=== PATIENT | female | born 1945 | race Caucasian/White ===

== ENCOUNTER 2025-08-17 07:30 | Outpatient (OUT) | payer MEDICARE, OTHER, SELFPAY ==
--- OUTSIDE RECORDS SUMMARY | 2011-07-22 05:30 | XMS_ITS | Continuity of Care Document ---
Author Organization [facility] Address [address] [place] [address] Phone Care Team Providers Care Envelope Stuffer Name Role Phone Brodie IGLESIAS, Matthias Unavailable Unavailable Procedures Procedure Date ZOSTER VACC, SC OFFICE/OUTPATIENT VISIT, EST OFFICE/OUTPATIENT VISIT, EST ZOSTER VACC, SC Advance Directives Directive Yes / No Effective Date File Name Resuscitation Not Answered N/A N/A Life Support Not Answered N/A N/A Intubation Not Answered N/A N/A Antibiotics Not Answered N/A N/A IV Fluid Support Not Answered N/A N/A Tube Feed Not Answered N/A N/A Other Directive N/A N/A WARNING:The information contained in this section is historical and is provided for information only and does not constitute a legal document or any assurance that the information is still accurate. Please verify the information with the marin of the legal document before using it for clinical purposes. Encounters Encounter Description Practice Location Reason(s) For Visit Diagnoses Date Provider Providers Copied on Encounter OFFICE/OUTPAT IENT VISIT, [facility], [address], [place], [id number], tel:[phone] [facility] Need for prophylactic vaccination and inoculation, other viral diseases Brodie Dillard. [address], [place], [id number], [place]. tel:[phone] Family History Family Member Type Diagnosis Age At Onset No Information Immunizations Vaccine Date Status Comments Zoster administered Source: New Imm unization Record Payers Payer name Insurance type Covered green party ID Authoriza tion(s) No Information Social History Type Description Quantity Date Captured Comments Alcohol Use Details Unknown Caffeine Use Details Unknown Tobacco Use Status No Information Smoking Status No Information Sex Female Chief Complaint And Reason For Visit No Information Reason For Referral Reason For Referral No Information History Of Present Illness Encounter Date Complaint History Of Prese nt Illness No Information Functional Status Date Functional Assessmen t No Information Instructions Date Instruction Additional Infor mation No Information Assessments Type Assessment Date No Information Patient Care Teams Name Effective Dates (start - stop) Status Members No Information
--- OUTSIDE RECORDS SUMMARY | 2024-03-21 05:10 | XMS_ITS ---
Author Organization [facility] in [place] Address [address] [place] [address] Care Team Providers Care Health Care Manager Name Role Phone Eddy Aldridge DO Primary Care Provider Unavail able Patrick Shin [phone] REASON FOR VISIT Ref Luis Carlos- scheduled w/ Karyn - Recurrent UTIs w/ hematuria -- medicare Encounters Encounter Location Date Provider Diagnosis Urology [facility] [address] [address] 03/21/2024 Patrick Shin Plan Of Treatment No Information Progress Notes * Yadira CHARLESDOB:1944 (80 yo F)Acc No.[id number]:03/21/2024 UNLOCKED PROGRESS NOTE Progress Note Patient: Yadira CHAVEZ :?ELIAS BobbyOB:1945???Age:79 Y ???Sex:FemaleDate:4Phone:[phone]:[address], [facility]Crl:Eddy Aldridge DO Subjective: * Chief Complaints: * 1 . Ref Luis Carlos- scheduled w/ Karyn - Recurrent UTIs w/ hematuria -- medicare. * Medical History: Objective: * Vitals: Assessment: Plan: * Treatment: * * Electronic signature of Patrick Shin MD, [id number] on 08/17/2025 at 07:36 AM ESTSign off status: PendingVisit Status:?CANC (Cancelled) * Provider: Jose Manuel Shin MD Date: 0 03/21/2024 Generated for Printing/Faxing/eTransmitting on:?08/17/2025 07:36 AM EST
--- NOTE | 2025-08-17 | XR_ITS ---
The [address] [address] Patient Name: NGHIA SINCLAIR MRN: [id number] date: 1945 Sex: F Assigned Patient Location: [facility] Current Patient Location: [facility] Accession/Order Number: [id number] Exam Date: 08/17/2025 10:00 Report Date: 08/17/2025 11:07 At the request of: ADALGISA SSOA MD Procedure: XR knee LT 4V LEFT KNEE - 4 views COMPARISON: None CLINICAL DATA: Chronic worsening left knee pain. No reported injury. Weightbearing AP, lateral, tunnel and patellar views were obtained. There is osteopenia. No acute fracture or dislocation is identified. There is narrowing of the lateral tibiofemoral joint space with potential bone to bone contact on the tunnel view. There is no patellar subluxation. Mild marginal spurring is seen. There is a small amount of joint fluid. No soft tissue swelling is noted. XR/XR knee LT 4V IMPRESSION: OSTEOPENIA AND DEGENERATIVE CHANGES. Impression dictated by: Mona Hernandez M.D. 08/17/2025 11:07 AM Dictation Location: [place] [address] Electronically authenticated by: [id number] Y Date: 08/17/2025 11:07
--- OUTSIDE RECORDS SUMMARY | 2025-08-17 07:33 | XMS_ITS | Continuity of Care Document ---
Author Organization [facility] Address [address] [place] [address] Phone Care Team Providers Care Elementary Principal Name Role Phone Yadira Meza DO Attending Provider Mast, Haseeb DO Primary Care Provider Mast, Haseeb DO Attending Provider [phone] Care Teams Patient Care Team Team Status: Active Member Role/Relationship Status Dates Haseeb Arteaga DO Primary Care Provider Active Visit Care Team Team Status: Inactive Member Role/Relationship Status Dates Yadira Meza DO Attending Provider Active S tart: May 24, 2025 End: May 24, 2025Eric Mast DOPrimary Care ProviderActiveStart: May 24, 2025 End: May 24, 2025 Visit Care Team Team Status: Inactive Member Role/Relationship Status Dates Haseeb Mast , DO Primary Care Provider Active Star t: July 16, 2025 End: July 16, 2025Eric Mast , DOAttending ProviderActiveStart: July 16, 2025 End: July 16, 2025 Chief Complaint and Reason for Visit Chief Complaint Admit Date Z13.820 Z78.0 May 24, 2025 9: 38am discuss her asthma July 16, 2025 4 :26pm Reason for Visit Admit Date Asthma July 16, 2025 4 :26pm Seasonal allergies July 16, 2025 4 :26pm Allergies, Adverse Reactions, Alerts Allergen Type Severity Reaction Last Updated Verified Status aloe Allergy Unknown Itching, hives July 162024 3:42pm Yes Active sunflower seed Allergy Unknown throat closes , vomiting July 16, 2025 3:42pm Yes Active Social History Smoking Status Status Start Date End Date Date of Observa tion Ex-smoker (finding) April 27, 2025 8:12am Observation Status Observation Response Date of Response Legal Sex [facility] (finding) [facility] 1944 Family History Relationship Condition Age at Onset Recorded Date/T tahmina mother Malignant neoplasm of stomach Unknown DeceasedUnknownfatherMalignant neoplasm of prostateUnknownDeceasedUnknownbrother Malignant neoplasm of kidneyUnknownDeceasedUnknownsisterDeceasedUnknownMalignant neoplasm of kidneyUnknown Problems Active Problems Problem Diagnosis/Recorded Date Onset Date Status C omments Establishing care with new d rani, encounter for April 27, 2025 9:17am Unknown Active Fatty liverApril 2023 9:53amUnknownActiveGastritisOctober 2023 10:38am UnknownActiveSeasonal allergiesMay 2023 8:47amUnknownActive HypercholesteremiaJune 2019 9:06amUnknownActiveOsteoarthritisMay 2023 8:48amUnknownActiveleft kneeBlood in stoolApril 2023 10:08amUnknownActive GERD (gastroesophageal reflux disease)January 15, 2025 10:51amUnknownActive Abdominal painApril 2023 10:11amUnknownActiveHypertensionJune 2019 9:06amUnknownActiveUlcerative colitisJune 2019 9:07amUnknownActive ConstipationApril 2023 10:07amUnknownActiveAsthmaMay 2023 8:49am UnknownActivemild Medications Medication Status Dose Units Route Directions Qty Days Refills S tart Date Stop Date End Date Reason(s) Instructions Adherence Mesalamine 0.375 gram capsule,extended release 24hr Discontinued 1.5 GM PO Daily 360 90 3 b ruary 2023 12:00am November 25, 2023 11:56amTake 4 capsules orally once a dayMesalamine 0.375 gram capsule,extended release 30dtDxgmnvcagzze0.2CVPTGvcjo290918Bcmchkmj 2023 11:55amSeptember 2023 7:10amulcerative colitisTake 4 capsules orally once a dayPantoprazole 40 mg tablet,delayed release (DR/EC)Jihjxdhvypqi41LYVB Dugvi445Lulg 2023 11:00pmOctober 2023 10:16amMesalamine 0.375 gram capsule,extended release 45zqCepmkyoccrxj7.8JCNWEmhzb404299Rbnb 2023 11:00pmSeptember 2023 7:10amTake 4 capsules orally once a day.Mesalamine 0.375 gram capsule,extended release 41muLgfizosxdprh6.9LOLEFjddh868795Lkvfsfgtr 2023 7:09amJanuary 2024 11:55amulcerative colitisTake 4 capsules orally once a dayMesalamine 0.375 gram capsule,extended release 24hrDiscontinued 1.3ITOHQqkxj115815Waneskp 2024 11:54amAugust 2024 12:13pmulcerative colitisTake 4 capsules orally once a dayAtorvastatin 10 mg lsacznOzqclv87CGZU Daily at ccpaupp016Awre 2024 9:05amComplies with drug therapyIrbesartan 150 mg dumnklNdchmt483VEXRWxijv at wvwhqad771Uyof 2024 9:06amComplies with drug therapyMesalamine 0.375 gram capsule,extended release 65liJbomwcsvzlxa7.5GM ZQFbdbw807185Rqluao 2024 12:12pmOctober 2024 3:46pmulcerative colitisTake 4 capsules orally once a dayNirmatrelvir-Ritonavir (Paxlovid) 300 mg (150 mg x 2)-100 mg tablets,dose jlhuYkwazehtybdi1LM.JQBPMKK226Xqsycv 2024 11:00pmOctober 2024 3:46pmtake TWO 150 mg tablets of nirmatrelvir with ONE 100 mg tablet of ritonavir twice daily for 5 days POMultivitamin TabletActive1 TABPODailyJune 2019 11:00pmComplies with drug therapyAtorvastatin 10 mg tmhqxjTqyvftaqdwib8PKVMPSblhc at bedtimeJun2019 11:00pmJuly 2024 9:06amAscorbic Acid (Vitamin C) (Vitamin C) 500 mg HcvnfnWlicil154BMXRPvqiuWadl 2019 11:00pmComplies with drug therapyVitamin B Complex KzshivBowuxs4CGCPE DailyJun2019 11:00pmComplies with drug therapyEstradiol 0.01 % (0.1 mg/gram) yeilwMemtrp9TVPFBIAHARWQmyjf a WeekJun2019 11:00pmComplies with drug therapyLosartan 100 mg yelsbbHyvbhlrikxkr3DDRRFBhbkqNqer 2019 11:00pm January 07, 2024 9:57amLoratadine 10 mg EkmbcfEahtws71DDKJLzagdDqks 2019 11:00pmComplies with drug therapyCoenzyme Q10 (Co Q-10) 200 mg ZzjsjynXlcgwn936 MGPODailyJune 2019 11:00pmComplies with drug therapyCholecalciferol (Vitamin D3) (Vitamin D3) 50 mcg (2,000 unit) ItbupeJlxjss9253DIGEDTRhccxCugo 2019 11:00pmComplies with drug therapyMesalamine 0.375 gram capsule,extended release 13dcEizqgxdckhuz5GSIOOPddibRinw 2019 11:00pmApril 2023 9:58amLutein-Zeaxanthin 25-5 mg FizpimfUqomtp7JWNNUUoefeQfjk 2019 11:00pmComplies with drug therapyLactobacillus Combination No.4 (Probiotic) 3 billion cell BsaoengOzbrmyqavtel2089WGB CELLSPODailyJune 2019 11:00pmJuly 2024 9:58amTurmeric 400 mg ZjcticdEtkrrxfxueko4XOMDSBiavaCkoy 2019 11:00pmApril 2024 10:01amLactobacillus Combination No.4 (Probiotic) 3 billion cell lcmnoilRlhiop2930SBS CELLSPODailyJuly 2024 9:57amComplies with drug therapyLysine 500 mg srdkskIwlvolpeakkb252DHDMCzctlNiz 2023 11:00pmJuly 2024 8:10amMagnesium Glycinate 100 mg magnesium capsule Ydxqzaidziva574CAKDOnsgbUsx 2023 11:00pmOctober 2024 3:46pm Fluticasone Propionate 110 mcg/actuation HFA aerosol bwycwjwMyfqujsulivc3AIFD INHALATIONDaily at bedtimeMay 2023 11:00pmJuly 2024 8:06am FreeTextSi puffs Inhalation Twice a day; Note: Source Status: Taking; Provider: Vladimir Givens ( )Lysine 500 mg bnvhwnLgydld372DDQPCarxz as neededJuly 2024 8:10amComplies with drug therapyMagnesium Glycinate 100 mg magnesium wquezngWjyslf529MUQOWyvvqXomykbi 2024 3:44pmComplies with drug therapyIrbesartan 150 mg ujzeaiXulujlrxjxtz785QDZWFpzbs at bedtimeApril 2023 11:00pmJuly 2024 9:06ambeta caroteneDiscontinuedPOApril 2024 11:00pmJuly 2024 9:58amFamotidine 40 mg fieqftKhhczufhppyx81WQOQOjfve at ckwovyx92729Sclxd 2024 11:00pmJuly 2024 8:10ambeta caroteneActive 7500UNITPOJuly 2024 9:56amComplies with drug therapyMesalamine 0.375 gram capsule,extended release 43qeOuwunx0.375GMPODailyOcttrigg county hospital 2024 3:45pm ulcerative colitisTake 4 capsules orally once a dayUnknownZinc Acetate 50 mg (zinc) muzotrbFxpfql34TMIJMkgafHsfc 2024 11:00pmComplies with drug therapy Bosque-3 Fatty Acids 1,250 mg jkbzssoVbzuxt5890AJDWUruvxBhzc 2024 11:00pm Complies with drug therapyVitamin K2 100 mcg alkksfeQnkhsq827RVBHTRovggEfjp 2024 11:00pmComplies with drug therapyCalcium Carb, Citrate, Malate 250 mg calcium ogcyluzCtzzjx219CSQPXqnr 2024 11:00pmComplies with drug therapy Famotidine 40 mg wgypslNhhiio77CJMSWqeoq at bedtime as neededJuly 2024 8:09amComplies with drug therapy Immunizations Immunization Event Date Not Given Reason Dose 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 Number Reason(s) Given Vaccine Information Statement (VIS) Detail Administration Location Fluzone TIV High-Dose 65YR+ July 16, 2025 [id number] [facility] Procedures Procedure Date Performed Status XR dexa axial skeleton May 24, 2025 8:39am completed MM screening mammo BI w/CAD May 24, 2025 8: 39am completed Relevant Diagnostic Tests and/or Laboratory Data Diagnostic Imaging Reports Author Michoacano Ellis [facility] CenterAuthoredAugust 2024 2:35pmReportDictated Date/TimeDictated ByStatusRadiology ReportAugust 2024 2:35pmMichoacano Ellis II [facility] [address] [place] [address] Mammography Report Signed Patient: Yadira Hernandez MR# : [id number] : 1945 Acct:[id number] Age/Sex: 80 / F Adm Date: 5 Loc: [place] Room: Type: [facility] Attending Dr: Yadira Meza DO Ordering Provider: Yadira Meza DO Date of Service: 05/24/25 Procedure(s): MM screening mammo BI w/CAD Accession Number(s): ([id number]) MM/MM screening mammo BI w/CAD: screening Copies to: Haseeb Arteaga DO Yadira Meza DO~ CLINICAL DATA: Screening for malignancy. BILATERAL SCREENING MAMMOGRAMS - FULL FIELD DIGITAL WITH TOMOSYNTHESIS AND CAD Tomosynthesis craniocaudal and mediolateral oblique views of both breasts were obtained using low-dose digital technique. Comparison is made to prior studies from 05/23/2024, 05/21/2023, 11/19/2022, and 05/18/2022. This examination was reviewed with the aid of CAD. There are scattered fibroglandular densities. Benign-appearing lymph nodes are noted along the chest wall. Benign-appearing calcifications are present. There are no dominant masses, typically malignant calcifications or architectural distortion. There has been no significant interval change. MM/MM screening mammo BI w/CAD IMPRESSION: NO MAMMOGRAPHIC EVIDENCE OF MALIGNANCY. ROUTINE FOLLOW-UP IS RECOMMENDED IN ONE YEAR. RESULT CODE: 2 Benign Findings(s) DENSITY CODE: 2 (approximately 25-50% glandular) There are scattered areas of fibroglandular density. FOLLOW UP: 1YR The false-negative rate of mammography is approximately 10-percent. Management of a palpable abnormality must be based on clinical grounds. Patient was entered into a reminder system with a target due date for the next mammogram. Impression dictated by: Michoacano Ellis M.D. 05/24/2025 3:52 PM Dictation Location: [facility] Dictated By: Michoacano Ellis II, MD 05/24/25 1535 Signed By: <Electronically signed by Michoacano Ellis II, MD in OV> 05/24/25 1552 Vital Signs Vital Reading Result Reference Range Collection Date/Time Height 63 [in_i] July 16, 2025 3:53geZljbvl06.54 kgOcttrigg county hospital 2024 3:47pmBody Temperature 97.1 [degF]97.6-99.0Oct[facility] 2024 3:47pmHeart Rate74 /rnm63-928Fnyvcji 2024 3:47pmRespiratory rate18 /xup48-00Bfrukxp 2024 3:47pmOxygen saturation by Pulse %95-100[facility] 2024 3:47pmBP Tjjvxyee391 mm[Hg]100-140[facility] 2024 3:47pmBP Rmcdymrbt06 mm[Hg]60-100Oct[facility] 2024 3:47pmBMI (Body Mass Index)26.7 kg/l1Cdzewjs 2024 3:47pm Advance Directives Advance Directive Response Recorded Date/ Time Advance Directives No April 18 10:00am Insurance Providers Guarantor Yadira Hernandez Address [address] [place] [id number] Info.Home Phone: Payer Group Member ID Coverage Type Subscriber Relationship to Subscriber Effective Date Expiration Date MMO [id number] A [employer] Id: [id number] [facility] [address] Home Phone: Email: [email or web address] Retired Id: [id number] A [employer] Id: [id number] [address] [place] [address] Home Phone: Email: [email or web address] Encounters Encounter Location(s) Arrival/Admit Date Discharge/Departure Date Discharge/Departure Disposition Provider(s) [facility] May 24, 2025 9:38am May 24, 2025 9:39am Discharged to home care or self care (routine discharge) Yadira Meza DO Departed Physician/ Provider Office Visit -[facility] [place] July 16, 2025 4:26pm July 16, 2025 5:29pm Discharged to home care or self care (routine discharge) Haseeb Arteaga DO Recent Diagnosis Onset Date Admit Date Asthma Unknown July 16 4:26pm Seasonal allergies Unknown July 16, 2025 4:26pm Assessments Diagnosis Onset Date Resolution Status Admit Date Asthma acuteOctober 2024 4:26pmSeasonal allergiesacuteOctober 2024 4:26pm Plan of Treatment Author Haseeb Arteaga [facility] CenterAuthoredOctober 2024 4:39pmWe discussed her symptoms at length. It is unclear to me if the symptoms that she is attributing to asthma exacerbation are truly from asthma, or whether it is actually from postnasal drainage related to allergic rhinitis. Clinically, I suspect the latter more than the former. I advise she start using the Nasacort 1 spray per nostril twice daily on a regular basis and observe response. I asked her to recheck with me in 6 weeks on this. In the meantime, she may continue to use the Arnuity as needed. She had questions regarding whether we might switch to a different asthma inhaler based on her Medicare formulary. We will review this when she returns in follow-up in 6 weeks. Flu vaccine provided today. Call if problems Future Tests Future scheduled test information is unavailable Pending Tests Pending diagnostic test information is unavailable Future Visits Future appointment information is unavailable Future Procedures Future procedure information is unavailable Future Medications Future medication information is unavailable Patient Instructions Patient instructions are unavailable
--- OUTSIDE RECORDS SUMMARY | 2025-08-17 07:36 | XMS_ITS | Patient Health Record ---
Author Organization [facility] in [place] Address [address] [place] [address] Care Team Providers Care Mucking Machine Operator Name Role Phone Eddy Aldridge DO Primary Care Provider Unavail able Reason For Referral No Information Plan Of Treatment No Information
--- OUTSIDE RECORDS SUMMARY | 2025-08-17 07:36 | XMS_ITS | Clinical Summary ---
Author Organization [facility] Address [address] [place] [address] Care Team Providers Care Sunglass Clip Attacher Name Role Phone Luis CarlosEddy DO Unavailable [phone] Yadira Meza DO Unavailable [phone] MastHaseeb E DO Primary Care Provider [phone] Allergies Active AllergyReactionsCriticalityNoted KvuzEybdyxgnErsf42/01/2023 Other Reaction(s): itchy skin Other Reaction(s): Itching, hives Hsbxrcojkcp06/01/2023 Other Reaction(s): myalgia Irving Oil02/01/2023 Other Reaction(s): anaphylaxis, vomit Other Reaction(s): throat closes, vomiting Medications MedicationSigDispense QuantityRefillsLast FilledStart DateEnd DateStatus Lutein-Zeaxanthin 15-0.7 MG capsule Take 1 capsule by mouth. As directedActive Multiple Vitamin (MULTI-VITAMINS PO) Take by mouth Daily.11/29/2008ctive Lactobacillus (PROBIOTIC ACIDOPHILUS PO) Take 1 capsule by mouth in the morning.Active cholecalciferol (Vitamin D-3) 50 MCG (1999 UT) capsule Take 2,000 Units by mouth in the morning.10/13/2012ctive Ascorbic Acid (Vitamin C) 500 MG capsule Take 500 mg by mouth in the morning.Active coenzyme Q-10 200 MG capsule Take 200 mg by mouth in the morning.Active loratadine (Claritin) 10 MG tablet Take 10 mg by mouth in the morning.Active mesalamine ER (Apriso) 0.375 g 24 hr capsule Take 0.375 g by mouth in the morning. Take 4 capsule in the morning.Active Imboden-3 Fatty Acids (Fish Oil) 1200 MG capsule delayed-release Take 1,200 capsules by mouth in the morning and 1,200 capsules before bedtime. Active triamcinolone (Nasacort Allergy 24HR) 55 MCG/ACT nasal inhaler Administer 1 spray into each nostril in the morning. As needed.Active vitamin E 180 MG (400 UNIT) capsule Take 180 mg by mouth in the morning.Active CALCIUM CITRATE PO Take 650 mg by mouth in the morning and 650 mg before bedtime.Active MAGNESIUM GLYCINATE PO Take 500 mg by mouth 1 (one) time each day4Active atorvastatin (Lipitor) 10 MG tablet Indications:Mixed hyperlipidemiaTAKE 1 TABLET AT NIGHT 90 tablet tive irbesartan (Avapro) 150 MG tablet Indications:Benign essential hypertensionTAKE 1 TABLET DAILY 90 tablet 5Active estradiol (Estrace) 0.1 MG/GM vaginal cream Indications:Postmenopausal status, age-relatedInsert 1 g into the vagina 2 (two) times a week 42.5 g /300771/6Active fluticasone (Flovent) 110 MCG/ACT inhaler Indications:Mild intermittent asthma without complication (HCC)Inhale 1 puff in the morning and 1 puff before bedtime. Rinse mouth with water after use to reduce aftertaste and incidence of candidiasis. Do not swallow. 12 g 506//359635/6Active Active Problems ProblemNoted DateDiagnosed DateAtherosclerosis of aorta02/14/2023enign essential frwchqsfyvnk80/14/2023Steatosis of liver02/14/2023Mild intermittent gfvuul5802/14/2023Mixed hulinllrokumfi78/14/2023 Assessment & Plan (02/22/2023 1:05 PM EDT): Tolerating the atrovastatin Fnyfwmflpzqmjv76/14/2023Schatzki's ring of distal arvgbrcfh78/14/2023Ulcerative colitis, jpucbzoqtrmt28/14/5476Diaowwlenq04/14/2023 Resolved Problems ProblemNoted DateDiagnosed DateResolved YnslYdjmglqjx76/22/202312/06/2024 Encounters DateTypeDepartmentCare VfzyXbzcuxbnive59/24/2025Refill [facility] [place] [facility] [address] [place] [id number] Eddy Aldridge DO Benign essential uuotxphukeuu88/27/2025Results Follow-Up [facility] [place] [facility] [address] [place] [id number] Yadira Meza DO DEXA bone densityfrom Last 3 Months Immunizations ImmunizationAdministration DatesNext DueInfluenza, High Dose Seasonal, Preservative Free07/13/2022,07/22/2017,07/22/2016Influenza, Recombinant, injectable, preservative free06/30/2021Influenza, Seasonal, Quadrivalent, Ucpqlsmujo44/12/2023,06/30/2021Influenza, injectable, quadrivalent, preservative free07/22/2017Influenza, seasonal, injectable, preservative free08/14/2015 Influenza, seasonal, intradermal, preservative free07/24/2014Influenza, trivalent, yxzbzfqpoj09/21/2024,08/22/2020,08/07/2019,08/05/2018Pneumococcal Conjugate PCV 131Pneumococcal Conjugate PCV Pneumococcal Polysaccharide FPQK863211/15/2017,07/28/2007RSV, recombinant, protein subunit RSVpreF, adjuvant reconstitu, 120mcg/0.5mL, PF (Arexvy)08/17/2023Zoster, Wddllurdvah54/03/2021,03/31/2021Zoster, live10/04/2014,07/21/2011 Family History Medical HistoryRelationNameCommentsDiabetesBrother 1Kidney cancerBrother 1 Kidney; macular degenerationMacular degenerationBrother 1CancerBrother 2John DiabetesBrother 2JohnKidney diseaseBrother 2JohnVision lossBrother 2John ArthritisFatherMiltonAsthmaFatherMiltonCancerFatherMiltonProstate cancerFather MiltonProstateArthritisMotherAlmaCancerMotherAlmaMacular degenerationMotherAlma Stomach cancerMotherAlmaStomach; macular degenarationVision lossMotherAlmaCancer SisterMaryDiabetesSisterMaryHeart diseaseSisterMaryCHFHeart failureSisterMary Kidney cancerSisterMaryRenalKidney diseaseSisterMaryRelationNameStatusComments Brother 5Byitcjsw3 brotherBrother 2JohnFatherMiltonDeceasedMotherAlmaDeceased SisterMaryDeceased1 sisterSon2 sons Social History Tobacco UseTypesPacks/DayYears UsedDateSmoking Tobacco: LpypclFreqpbopdm477.4 10/04/1965 - 03/03/1980Passive Smoke Exposure: PastSmokeless Tobacco: Never Tobacco Cessation:Counseling Given: Not Answered Comments:Last smoked : > 10 years Alcohol UseStandard Drinks/WeekCommentsNever0 (1 standard drink = 0.6 oz pure alcohol)Caffeine: CoffeeAUDIT-CAnswerDate RecordedQ1: How often do you have a drink containing alcohol?Monthly or less03/06/2024Q2: How many drinks containing alcohol do you have on a typical day when you are drinking?1 or Q3: How often do you have six or more drinks on one occasion?Never03/06/2024HQ-2 AnswerDate RecordedPatient Health Questionnaire-2 Cidlw93711/12/2023 CommentsNoSex and Gender InformationValueDate RecordedSex Assigned at BirthNot on fileLegal GrsWeucfb69/15/2023 7:24 PM EDTGender IdentityNot on fileSexual OrientationNot on file Last Filed Vital Signs Vital SignReadingTime TakenCommentsBlood Tqivngwx732/7203 11:17 AM EDT Lynfy670603/12/2025 11:26 AM CHXEuwhctwcmmg93.1 ??C (97 ??F)02/08/2024 9:47 AM EDT Respiratory Rate--Oxygen Aebjsdssfi56%03/12/2025 11:26 AM EDTInhaled Oxygen Concentration--Wtttcx77.7 kg (153 lb 9.6 oz)03/12/2025 11:26 AM JHQEbjhft456 cm (5' 3 )03/12/2025 11:26 AM EDTBody Mass Index27. 11:26 AM EDT Plan of Treatment DateTypeDepartmentCare Team (Latest Contact Info)Umplfczhbfk89/01/2026 1:00 PM EDTOffice Visit [facility] [place] [facility] [address] [place] [address] Yadira Meza DO [address] [place] [address] Health MaintenanceDue DateLast DoneCommentsCOVID-19 Vaccine ( season) , 01/20/2022, 06/30/2021, Additional history existsMedicare Annual Wellness (AWV)5111/12/2023, 09/08/2022, 09/11/2021neumococcal Vaccine: 65+ LnkvhNajuijdrc44/12/2018, 07/22/2015, 07/28/2007, Additional history lamlcvGhzeurjprqxFqnelhmksvvy46/02/2024, 04/04/2024, 03/05/2020, Additional history existsColorectal Cancer ScreeningDiscontinuedInfluenza WgzvstrBvsjvmpbw93/13/2025, 07/24/2024, 07/15/2023, Additional history existsCT ColonographyDiscontinuedFIT-DNADiscontinuedFITDiscontinuedFOBTDiscontinued SigmoidoscopyDiscontinued Procedures Procedure NamePriorityDate/TimeAssociated DiagnosisCommentsDEXA BONE DENSITY Jhtecps5105/29/2025 1:21 PM EDT Screening for osteoporosis Postmenopausal status, age-related BI MAMMOGRAM SCREENING TOMOSYNTHESIS JRFSOZGHVWdxpwou94/21/2025 3:35 PM EDT Encounter for screening mammogram for breast cancer TONVMNVDMOSMqwxmef27/02/2024 10:29 AM EDTfrom Last 3 Months or Most Recently Relevant to Health Maintenance Results * DEXA bone density (05/29/2025 1:21 PM EDT)Anatomical RegionLateralityModality BodyRadiographic Imaging Narrative Authorizing ProviderResult TypeResult StatusYadira Meza DOIMG DXA PROCEDURESFinal Result * Bilateral screening mammogram with tomosynthesis (05/24/2025 3:35 PM EDT) Anatomical RegionLateralityModalityBreastBilateralMammographySpecimen (Source) Anatomical Location / LateralityCollection Method / VolumeCollection Time Received Time05/24/2025 3:35 PM EDT Impressions 05/24/2025 3:54 PM EDT NO MAMMOGRAPHIC EVIDENCE OF MALIGNANCY. ? ROUTINE FOLLOW-UP IS RECOMMENDED IN ONE YEAR. ? RESULT CODE: 2 ? Benign Findings(s) ? DENSITY CODE: 2 (approximately 25-50% glandular) There are scattered areas of fibroglandular density. ? FOLLOW UP: 1YR ? The false-negative rate of mammography is approximately 10-percent. ? Management of a palpable abnormality must be based on clinical grounds. ?? Patient was entered into a reminder system with a target due date for the next mammogram. ? Impression dictated by: Michoacano Ellis M.D. ??05/24/2025 3:52 PM ? Dictation Location: [facility] ? Dictated By: ?Michoacano Ellis II, MD ? 05/24/25 1535 ? Signed By: <Electronically signed by Michoacano Ellis II, MD in OV> ? 05/24/25 1552 Narrative 05/24/2025 3:54 PM EDT [facility] ?[address] ?[place] [address] ?? [phone] ? Mammography Report ? Signed ? Patient: Gearheart,Yadira A ?MR#: [id number] ?? [id number] ? : 1945 ?Acct:[id number] ? Age/Sex: 80 / F ?Adm Date: 05/24/25 ? Loc: [place] ?Room: ?Type: REG CLI ?? Attending Dr: Yadira Meza DO ? Ordering Provider: Yadira Meza, DO ? Date of Service: 05/24/25 ? Procedure(s): MM screening mammo BI w/CAD ?? Accession Number(s): ([id number]) MM/MM screening mammo BI w/CAD: screening ? Copies to: Haseeb Arteaga DO ?? Yadira Meza DO ? CLINICAL DATA: ??Screening for malignancy. ? BILATERAL SCREENING MAMMOGRAMS - FULL FIELD DIGITAL WITH TOMOSYNTHESIS AND CAD ? Tomosynthesis craniocaudal and mediolateral oblique views of both breasts were obtained using low- dose digital technique. ??Comparison is made to prior studies from 05/23/2024, 05/21/2023, 11/19/2022, and 05/18/2022. ??This examination was reviewed with the aid of CAD. ? There are scattered fibroglandular densities. ??Benign-appearing lymph nodes are noted along the chest wall. Benign-appearing calcifications are present. There are no dominant masses, typically malignant calcifications or architectural distortion. ??There has been no significant interval change. ? MM/MM screening mammo BI w/CAD ?? Procedure Note Michoacano Ellis MD - 05/24/2025 [facility] [place] [place] [address] Mammography Report Signed Patient: Yadira Hernandez AMR#: [id number] : 1945cct:[id number] Age/Sex: 80 / FAdm Date: 05/24/25 Loc: [place] Room:Type: [facility] Attending Dr: Yadira Meza DO Ordering Provider: Yadira Meza DO Date of Service: 05/24/25 Procedure(s): MM screening mammo BI w/CAD Accession Number(s): ([id number]) MM/MM screening mammo BI w/CAD:screening Copies to: Haseeb Arteaga DO Yadira Meza DO CLINICAL DATA: Screening for malignancy. BILATERAL SCREENING MAMMOGRAMS - FULL FIELD DIGITAL WITH TOMOSYNTHESIS ANDCAD Tomosynthesis craniocaudal and mediolateral oblique views of both breastswere obtained using low- dose digital technique. Comparison is made to prior studies from05/23/2024, 05/21/2023, 11/19/2022, and 05/18/2022. This examination was reviewed with the aid of CAD. There are scattered fibroglandular densities. Benign-appearing lymphnodes are noted along the chest wall. Benign-appearing calcifications are present. There are nodominant masses, typically malignant calcifications or architectural distortion. There has been no significant interval change. MM/MM screening mammo BI w/CAD IMPRESSION: NO MAMMOGRAPHIC EVIDENCE OF MALIGNANCY. ROUTINE FOLLOW-UP IS RECOMMENDED IN ONE YEAR. RESULT CODE: 2 Benign Findings(s) DENSITY CODE: 2 (approximately 25-50% glandular) There are scattered areasof fibroglandular density. FOLLOW UP: 1YR The false-negative rate of mammography is approximately 10-percent. Management of a palpable abnormality must be based on clinical grounds. Patient was entered into a reminder system with a target due date for thenext mammogram. Impression dictated by: Michoacano Ellis M.D. 05/24/2025 3:52 PM Dictation Location: [facility] Dictated By: Michoacano Ellis II, MD 05/24/25 1535 Signed By: <Electronically signed by Michoacano Ellis II, MD inOV> 05/24/25 1552 Authorizing ProviderResult TypeResult StatusYadira Meza [facility] BI PROCEDURESFinal Result * Colonoscopy (04/04/2024 10:29 AM EDT)Anatomical RegionLateralityModality Endoscopy Narrative Authorizing ProviderResult TypeResult StatusUnknown Practice AENDOSCOPY PROCEDURE ORDERABLESFinal Result from Last 3 Months or Most Recently Relevant to Health Maintenance Insurance [employer] [id number] Care Teams Team MemberRelationshipSpecialtyStart DateEnd Eddy Aldridge DO [address] [place] [address] PCP - [facility]02/25/23 Haseeb Arteaga DO [address] [facility] [place] [address] [facility] Yadira Meza DO [address] [facility] [address] [place] [address] Referring PhysicianObstetrics and Pvesaqzlqp27/1/23
== END 2025-08-17 07:31 | disposition home or self-care (01) ==
LOC: RAD 07:30
PROVIDERS: PCP Family Medicine; Visit Provider Orthopaedic Surgery
DX: M17.12 Unilateral primary osteoarthritis, left knee (principal); M85.88 Other specified disorders of bone density and structure, other site
CPT/HCPCS: 73564